=== PATIENT | male | born 1980 | race Caucasian/White ===

== ENCOUNTER 2019-01-08 02:33 | Inpatient (IN) | payer SELFPAY ==
[~2019-01-08] VITALS: Ht 182.9 cm; Wt 137.7 kg
[2019-01-08 03:13] LABS: HEMATOCRIT 47.5 % (42.0-52.0); HEMOGLOBIN 15.7 g/dl (13.5-17.5); MEAN CORPUSCULAR HGB CONC 33.1 g/dl (32.0-36.5); MEAN CORPUSCULAR VOLUME 93.9 fl (80.0-96.0); PLATELET COUNT, AUTOMATED 230 10^3/uL (150-450); RED BLOOD COUNT 5.06 10^6/uL (4.30-6.10); WHITE BLOOD COUNT 7.1 10^3/uL (4.0-10.0)
[2019-01-08 03:34] LABS: AMPHETAMINES LEVEL URINE NEGATIVE (NEGATIVE); BARBITURATES URINE NEGATIVE (NEGATIVE); BENZODIAZEPINES URINE NEGATIVE (NEGATIVE); CANNABINOIDS URINE NEGATIVE (NEGATIVE); COCAINE METABOLITE URINE NEGATIVE (NEGATIVE); METHADONE URINE NEGATIVE (NEGATIVE); OPIATES URINE NEGATIVE (NEGATIVE); PHENCYCLIDINE URINE NEGATIVE (NEGATIVE)
[2019-01-08 03:44] LABS: ACETAMINOPHEN LEVEL < 2.0 UG/ML (10.0-30.0); ALBUMIN 3.9 GM/DL (3.2-5.2); ALT/SGPT 71 U/L (12-78); BILIRUBIN,DIRECT 0.2 MG/DL (0.0-0.2); BILIRUBIN,TOTAL 0.5 MG/DL (0.2-1.0); BLOOD UREA NITROGEN 12 MG/DL (7-18); CALCIUM LEVEL 8.3 MG/DL (8.5-10.1); CARBON DIOXIDE LEVEL 22 MEQ/L (21-32); CHLORIDE LEVEL 110 MEQ/L (98-107); CREATININE FOR GFR 0.95 MG/DL (0.70-1.30); GLOMERULAR FILTRATION RATE > 60.0 (>60); GLUCOSE, FASTING 120 MG/DL (70-100); POTASSIUM SERUM 4.2 MEQ/L (3.5-5.1); SALICYLATE LEVEL < 1.7 MG/DL (5.0-30.0); SODIUM LEVEL 140 MEQ/L (136-145); TOTAL PROTEIN 7.5 GM/DL (6.4-8.2)
--- NOTE | 2019-01-08 13:25 | ECGEPIP ---
[facility] - ED Test Date: 2019-01-08 Pat Name: CORRIE JUAREZ Department: Room: - Gender: Male Psychometrist: : 1980 Requested By: Ferdinand Ernst Order Number: [id number] Reading MD: Cierra Ta Measurements Intervals [place] Rate: 78 P: -5 [place]: 163 QRS: 46 QRSD: 102 T: 7 QT: 372 QTc: 425 Interpretive Statements SINUS RHYTHM POSSIBLE PRIOR INFERIOR INFARCT NO PRIOR Electronically Signed on 01-08-2019 13:25:29 EDT by Cierra Ta
[2019-01-09] MEDS ORDERED: MOM 30ML SUSPENSION UDC PO PRN (14:30)
[2019-01-09] MEDS ORDERED: MAALOX 30 ML SUSP *UDC PO PRN (14:30)
[2019-01-09] MEDS ORDERED: traZODone 50 MG TAB PO PRN (14:30)
[2019-01-09] MEDS ORDERED: ACETAMINOPHEN TAB 650MG DOSE (2X325MG) PO PRN (14:30)
[2019-01-09 16:35] VITALS: BP 150/82
[2019-01-10 07:16] VITALS: BP 148/86
--- NOTE | 2019-01-10 10:08 | MHHPEPDOC ---
General Date Of Admission: Jan 09, 2019 Legal Status: 9.39 Chief Complaint "I got upset with my step kids" History of Present Illness HISTORY OF THE PRESENT ILLNESS: Patient is a 38 -year-old , male, who presented to the ED by police on a 9.41 due to SI. Per the deputy, the patient and his daughter had an argument. His daughter then called her mother asking to be picked up because she was afraid he would hurt her. The daughter's mother then called the police. The police spoke with the patient's daughter who is 15y/o and she told the police the patient said he was going to shoot himself in front of her and the patient's girlfriend. Per police, the patient's girlfriend confirmed that the patient stated he was going to shoot himself. When the police spoke to the patient initially, he denied everything, but did then admit to having an argument and "saying things that I probably shouldn't have said." They asked him if he had any weapons, which he denied, however, his girlfriend was able to show police a gun from the household. In the ED the patient stated he had an argument with both his girlfriend and daughter, stating he has been stressed and told them "I don't need to be here because nobody listens to me." He reported that he just meant that he should leave the house. He denies making any comments about shooting himself. When questioned about the gun found in his home, he reports that it is his girlfri end's gun. He stated multiple times that he does not need to be here and he wants to go home. Ed reported the patient appeared to be minimizing in order to be discharged. The patient denies any history of MH or prior admissions. The patient admitted to drinking 4-6 beers two time a week, and his TROY was 0.120 upon arrival to the ED. He denied SI and HI in the ED. Psychiatric Review of Systems Depression (2 or more weeks): depressed mood, suicidal thoughts Darlene (4 or more days of): denies Psychosis: denies PTSD: denies Anxiety: stressor related anxiety Anxiety/ 6 months or more of: difficulty concentrating Past Psychiatric History Previous Psychiatric Diagnosis: none reported Previous Psychiatric Admissions: none reported Suicide Attempts: none reported Psychiatric Follow-up: none reported Psychiatric medications: none reported Past Medical History Head Injury: No Seizures: No Hospitalizations: Yes (Right knee surgery) Surgeries: Yes (Right knee surgery) Family Medical/Psychiatric HX Medical Problems Mother - lung cancer Psychiatric Disorders: No Addiction: No Suicide Attemps/Completions: No Addiction History alcohol (4-6 beers twice a week) Social History Childhood: Raised by both parents with his 5 sisters and 1 brother. Abuse/Trauma: None reported Current Living Situation: Lives with girlfriend of 10 years in [place] Education: high-school Employment: self-employed logging Social Support: girlfriend and children, parents Legal: none reported Marital: , currently in relationship with girlfriend for 10 years. Children: one bio daughter, two step-daughters Mental Status Examination General Appearance: well groomed, appears stated age, hospital scubs/clothing Build: overweight Demeanor: average Eye Contact: average Activity: average Behavior: cooperative Speech: clear, spontaneous, normal volume, reg/rate,rhythm,volume Mood: depressed, anxious Mood "I'm feeling good" Affect: appropriate, congruent, anxious Thought Process: logical/linear, racing, intact Thought Content (Delusions): none reported, denies SI, HI, AVH Thought Content (Other): none reported, appropriate Thought Content (Aggressive): none reported Perception (Hallucinations): none reported Perception (Other): none reported Cognition (Impairment of): none reported Cognition(Intelligence Est.): average Oriented: Awake, Alert, Oriented times three Insight: poor Judgment: Poor Psychosis: Denies Diagnoses Adjustment d/o with anxiety, depression, irritability r/o generalized anxiety d/o r/o intermittent explosive disorder A-FIB/CHADSVASC A-FIB History Current/History of A-Fib/PAF?: No Current PO Anticoag Therapy: No Treatment Treatment ordered: NONE Reason Anticoagulant not given: Not indicated/[id number] Assessment Patient seen and reporting he is "feeling good" today. States he was getting f rustrated with his step-daughter's not listening to him which caused him to think "what's the point of being here." Denies he remembers saying he want to kill himself by GSW prior admission. With regards to how he came to the hospital he reports he had been getting upset with his step-kids and he was "worrying too much about it, and my family took it the wrong way." He mentions t here is issues with what his step-daughters father allows them to do and what he and his girlfriend allows them to do. This has been causing stress for him lately. He has been trying to work on it himself and brush off his worries, but he reports the other night it got the best of him. He stated he said "maybe I shouldn't be here anymore" to his girlfriend and kids during an argument, and that is what led to him being here. He said he didn't really mean he was going to do anything, that his anger "got me a little bit." He mentions his daughter comes every other weekend, and she was there during the argument and called her mother to pick her up. His daughter had left with her mother, and shortly after the police showed up, so he believes his daughter's mother called the police. He reports "they said I told them I was going to shoot myself, and I never said that." He reports they have been trying to start counseling as a family and they are definitely going to be starting that when he leaves here. He denies any trouble sleeping, depressed mood, changes in appetite, anxiety, panic attacks. He only admits to occasional stressor related anxiety related to family struggles with his teenage daughters. He reports since he has been here he has gone to a few group sessions and finds them beneficial, and plans to continue attending group sessions while he is here. Patient appears to be minimizing in order to be discharged. Denies he believes he needs medication as is find talking to a 3rd constitution party, therapy, group therapy very beneficial for an outlet of internal frustrations he has no one to talk to at home about. Patient currently denies SI/HI/AVH. Patient feels safe here. Initial Treatment Plan 1. Patient was admitted on a status. 2. Complete history was obtained. 3. With patients permission, family will be contacted and database will be expanded. 4. Patients medication regimen will be reviewed and changed accordingly. 5. Patient will be provided with protected environment. 6. Patient will be treated with individual, group, and milieu therapies. 7. Patient will receive supportive psych-education. 8. Discharge planning will commence immediately. 9. Outpatient follow-up treatment will be strongly recommended. 10. The initial treatment plan will focus initially on: * Depression. * Risk for suicide. 11. monitor for safety, is finding therapy and group therapy beneficial. ESTIMATED LENGTH OF STAY: 7-10 DAYS. TIME SPENT COUNSELING AND COORDINATING INITIAL CARE: 60 minutes. Vital Signs Vital Signs Date Time Temp Pulse Resp B/P (MAP) Pulse Ox O2 Delivery O2 Flow Rate FiO2 01/10/19 07:16 96.8 99 16 148/86 (106) 01/09/19 16:35 96 01/09/19 15:06 Room Air Medications No Active Prescriptions or Reported Meds Allergies Coded Allergies: No Known Allergies (Unverified , 01/08/19) BRITTANIE DUBOIS DO Jan 10, 2019 10:08 am
[2019-01-10 16:51] VITALS: BP 144/78
[2019-01-11 06:41] VITALS: BP 155/83
--- NOTE | 2019-01-11 11:18 | MHIPNPDOC ---
[facility] Progress Note Progress Note DATE OF SERVICE: 01/11/19 HISTORY: Patient is a 38 -year-old , male, who presented to the ED by police on a 9.41 due to SI. Per the deputy, the patient and his daughter had an argument. His daughter then called her mother asking to be picked up because she was afraid he would hurt her. The daughter's mother then called the police. The police spoke with the patient's daughter who is 15y/o and she told the police the patient said he was going to shoot himself in front of her and the patient's girlfriend. Per police, the patient's girlfriend confirmed that the patient stated he was going to shoot himself. When the police spoke to the patient initially, he denied everything, but did then admit to having an argument and "saying things that I probably shouldn't have said." They asked him if he had any weapons, which he denied, however, his girlfriend was able to show police a gun from the household. In the ED the patient stated he had an argument with both his girlfriend and daughter, stating he has been stressed and told them "I don't need to be here because nobody listens to me." He reported that he just meant that he should leave the house. He denies making any comments about shooting himself. When questioned about the gun found in his home, he reports that it is his girlfriend's gun. He stated multiple times that he does not need to be here and he wants to go home. Ed reported the patient appeared to be minimizing in order to be discharged. The patient denies any history of MH or prior admissions. The patient admitted to drinking 4-6 beers two time a week, and his TROY was 0.120 upon arrival to the ED. He denied SI and HI in the ED. Patient seen and reporting he is "feeling good" today. States he was getting frustrated with his step-daughter's not listening to him which caused him to think "what's the point of being here." Denies he remembers saying he want to kill himself by GSW prior admission. With regards to how he came to the [facility] he reports he had been getting upset with his step-kids and he was "worrying too much about it, and my family took it the wrong way." He mentions there is issues with what his step-daughters father allows them to do and what he and his girlfriend allows them to do. This has been causing stress for him lately. He has been trying to work on it himself and brush off his worries, but he reports the other night it got the best of him. He stated he said "maybe I shouldn't be here anymore" to his girlfriend and kids during an argument, and that is what led to him being here. He said he didn't really mean he was going to do anything, that his anger "got me a little bit." He mentions his daughter comes every other weekend, and she was there during the argument and called her mother to pick her up. His daughter had left with her mother, and shortly after the police showed up, so he believes his daughter's mother called the police. He reports "they said I told them I was going to shoot myself, and I never said th at." He reports they have been trying to start counseling as a family and they are definitely going to be starting that when he leaves here. He denies any trouble sleeping, depressed mood, changes in appetite, anxiety, panic attacks. He only admits to occasional stressor related anxiety related to family struggles with his teenage daughters. He reports since he has been here he has gone to a few group sessions and finds them beneficial, and plans to continue attending group sessions while he is here. Patient appears to be minimizing in order to be discharged. Denies he believes he needs medication as is find talking to a 3rd republican, therapy, group therapy very beneficial for an outlet of internal frustrations he has no one to talk to at home about. Patient currently denies SI/HI/AVH. Patient feels safe here. VITAL SIGNS: See below. NEW TEST RESULTS: See below. CURRENT MEDICATIONS: See below. MENTAL STATUS EXAMINATION: General Appearance: well groomed, appears stated age, own clothing Build: overweight Demeanor: average Eye Contact: average Activity: average Behavior: cooperative Speech: clear, spontaneous, normal volume, reg/rate,rhythm,volume Mood: less depressed, anxious Mood "better" Affect: appropriate, congruent, less anxious Thought Process: logical/linear, racing, intact Thought Content (Delusions): none reported, denies SI, HI, AVH Thought Content (Other): none reported, appropriate Thought Content (Aggressive): none reported Perception (Hallucinations): none reported Perception (Other): none reported Cognition (Impairment of): none reported Cognition(Intelligence Est.): average Oriented: Awake, Alert, Oriented times three Insight: fair Judgment: fair Psychosis: Denies DIAGNOSES: Adjustment d/o with anxiety, depression, irritability r/o generalized anxiety d/o alcohol use d/o ASSESSMENT:Pt seen today and states he's feeling "much better" as he's finding attending groups and talking with myself and staff very beneficial for him being able to manage and cope with his stressors at home. States he continues to speak with his girlfriend on the phone and states that things are much better between them now and that she is supportive for him. He appears calmer and with brighter affect today. Is very motivated to continue outpatient individual and family therapy as finds talking with third-republican psych provider very beneficial for him to be able to manage and cope with his stressors in his life. 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 MANAGEMENT PLAN: D/c home tomorrow with follow-up Cristina . no meds (pt declined) TIME SPENT: 30 minutes. Vital Signs Vital Signs Date Time Temp Pulse Resp B/P (MAP) Pulse Ox O2 Delivery O2 Flow Rate FiO2 01/11/19 08:28 Room Air 01/11/19 06:41 98.6 69 14 155/83 (107) 01/09/19 16:35 96 Current Medications Current Medications Medications (Trade) Dose Ordered Sig/Gogo Route PRN Reason Start Time Stop Time Status Last Admin Dose Admin Acetaminophen (Tylenol Tab) 650 mg Q6HP PRN PO HEADACHE or DISCOMFORT 01/09/19 14:30 Al Hydrox/Mg Hydrox/Simethicone (Mylanta) 30 ml Q4HP PRN PO HEARTBURN/INDIGESTION 01/09/19 14:30 Magnesium Hydroxide (Milk Of Magnesia) 30 ml DAILYPRN PRN PO CONSTIPATION 01/09/19 14:30 Trazodone HCl (Desyrel) 50 mg QHSP PRN PO INSOMNIA 01/09/19 14:30 Allergies Coded Allergies: No Known Allergies (Unverified , 01/08/19) BRITTANIE DUBOIS DO Jan 11, 2019 11:18 am
[2019-01-11 16:50] VITALS: BP 122/82
[2019-01-12 06:32] VITALS: BP 118/86
--- NOTE | 2019-01-12 09:47 | MHDSPDOC ---
[facility] Discharge Summary Discharge Summary DATE OF ADMISSION: Jan 09, 2019 at 2:27 pm DATE OF DISCHARGE: Jan 12, 2019 DISCHARGE DIAGNOSES: Adjustment d/o with anxiety, depression, irritability r/o generalized anxiety d/o alcohol use d/o REASON FOR ADMISSION:Patient is a 38 -year-old , male, who presented to the ED by police on a 9.41 due to SI. Per the deputy, the patient and his daughter had an argument. His daughter then called her mother asking to be pick ed up because she was afraid he would hurt her. The daughter's mother then called the police. The police spoke with the patient's daughter who is 15y/o and she told the police the patient said he was going to shoot himself in front of her and the patient's girlfriend. Per police, the patient's girlfriend confirmed that the patient stated he was going to shoot himself. When the police spoke to the patient initially, he denied everything, but did then admit to having an argument and "saying things that I probably shouldn't have said." They asked him if he had any weapons, which he denied, however, his girlfriend was able to show police a gun from the household. In the ED the patient stated he had an argument with both his girlfriend and daughter, stating he has been stressed and told them "I don't need to be here because nobody listens to me." He reported that he just meant that he should leave the house. He denies making any comments about shooting himself. When questioned about the gun found in his home, he reports that it is his girlfriend's gun. He stated multiple times that he does not need to be here and he wants to go home. Ed reported the patient appeared to be minimizing in order to be discharged. The patient denies any history of MH or prior admissions. The patient admitted to drinking 4-6 beers two time a week, and his TROY was 0.120 upon arrival to the ED. He denied SI and HI in the ED. Patient seen and reporting he is "feeling good" today. States he was getting frustrated with his step-daughter's not listening to him which caused him to think "what's the point of being here." Denies he remembers saying he want to kill himself by GSW prior admission. With regards to how he came to the hospital he reports he had been getting upset with his step-kids and he was "worrying too much about it, and my family took it the wrong way." He mentions there is issues with what his step-daughters father allows them to do and what he and his girlfriend allows them to do. This has been causing stress for him lately. He has been trying to work on it himself and brush off his worries, but he reports the other night it got the best of him. He stated he said "maybe I shouldn't be here anymore" to his girlfriend and kids during an argument, and that is what led to him being here. He said he didn't really mean he was going to do anything, that his anger "got me a little bit." He mentions his daughter comes every other weekend, and she was there during the argument and called her mother to pick her up. His daughter had left with her mother, and shortly after the police showed up, so he believes his daughter's mother called the police. He reports "they said I told them I was going to shoot myself, and I never said that." He reports they have been trying to start counseling as a family and they are definitely going to be starting that when he leaves here. He denies any trouble sleeping, depressed mood, changes in appetite, anxiety, panic attacks. He only admits to occasional stressor related anxiety related to family struggles with his teenage daughters. He reports since he has been here he has gone to a few group sessions and finds them beneficial, and plans to continue attending group sessions while he is here. Patient appears to be minimizing in order to be discharged. Denies he believes he needs medication as is find talking to a 3rd libertarian, therapy, group therapy very beneficial for an outlet of internal frustrations he has no one to talk to at home about. Patient currently denies SI/HI/AVH. Patient feels safe here. CONSULTANTS INVOLVED: none TREATMENT AND PROGRESS ON THE UNIT : Pt was admitted to [facility], seen for psychiatric assessment and monitored for safety as he declined to start any psychotropic medications preferring to try outpatient therapy and substance abuse treatment first as treatment. He was provided trazodone 50mg qhs prn insomnia. He attended groups daily during his stay. His symptoms improved with treatment. States he slept well last night. Per d/c category planner, got information that pt may have gun in the home that he shares with his girlfriend and girlfriend contacted by d/c category planner to confirm that there are no fire arms in the home. On day of discharge he denied depression, anxiety, insomnia, SI/HI, hallucinations, delusions. He was discharged home with follow-up at [facility].. He felt safe for discharge. DISCHARGE ASSESSMENT: Pt seen today and states he's feeling "good" as he's finding attending groups and talking with myself and staff very beneficial for him being able to manage and cope with his stressors at home. States he continues to speak with his girlfriend on the phone and states that things are much better between them now and that she is supportive for him. He appears euthymic and bright today. States his anxiety is greatly improved with continuing to talk and learn coping skills to manage it that he plans to continue at home. States he is greatly looking forward to outpatient therapy as he believes it will be beneficial for him to manage his life stressors. Is very motivated to continue outpatient individual and family therapy as finds talking with third-libertarian psych provider very beneficial for him to be able to manage and cope with his stressors in his life. 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 On day of discharge he denied depression, anxiety, insomnia, SI/HI, hallucinations, delusions. MENTAL STATUS EXAMINATION ON DISCHARGE: General Appearance: well groomed, appears stated age, own clothing Build: overweight Demeanor: average Eye Contact: average Activity: average Behavior: cooperative Speech: clear, spontaneous, normal volume, reg/rate,rhythm,volume Mood: euthymic, full, bright Mood "good" Affect: appropriate, congruent, euthymic Thought Process: logical/linear, racing, intact Thought Content (Delusions): none reported, denies SI, HI, AVH Thought Content (Other): none reported, appropriate Thought Content (Aggressive): none reported Perception (Hallucinations): none reported Perception (Other): none reported Cognition (Impairment of): none reported Cognition(Intelligence Est.): average Oriented: Awake, Alert, Oriented times three Insight: good Judgment: good Psychosis: Denies MEDICATIONS ON DISCHARGE: none (pt declined) PLAN/FOLLOWUP ARRANGEMENTS: D/c home with follow-up Cristina [facility] and [place]. The amount of time spent in the coordination of care for this patient was approximately 30 minutes. Vital Signs/I&Os Vital Signs Date Time Temp Pulse Resp B/P (MAP) Pulse Ox O2 Delivery O2 Flow Rate FiO2 01/12/19 06:32 97.6 75 18 118/86 (97) 01/11/19 08:28 Room Air 01/09/19 16:35 96 Medications No Active Prescriptions or Reported Meds Allergies Coded Allergies: No Known Allergies (Unverified , 01/08/19) BRITTANIE DUBOIS DO Jan 12, 2019 9:47 am
== END 2019-01-12 12:12 | disposition home or self-care (01) | DRG 755 ==
LOC: M ED 02:33 → M ED INP 01-09 14:27 → M PSY 01-09 15:17
PROVIDERS: ADMIT Psychiatry & Neurology Psychiatry; ATTEND Psychiatry & Neurology Psychiatry
DX: F43.23 Adjustment disorder with mixed anxiety and depressed mood (principal); F41.1 Generalized anxiety disorder; F10.10 Alcohol abuse, uncomplicated